=== PATIENT | male | born 1990 | race Caucasian/White ===

== ENCOUNTER 2017-02-23 23:26 | Emergency (ER) | payer MEDICARE, MEDICAID ==
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
== END 2017-02-24 11:40 | disposition home or self-care (01) ==
LOC: ER 23:26
PROC: 0PSPXZZ Reposition Right Metacarpal, External Approach (ICD-10-PCS; principal; 2017-02-23)
DX: S62.324A Displaced fracture of shaft of fourth metacarpal bone, right hand, initial encounter for closed fracture (principal); S62.316A Displaced fracture of base of fifth metacarpal bone, right hand, initial encounter for closed fracture; W22.8XXA Striking against or struck by other objects, initial encounter

== ENCOUNTER 2017-03-11 00:27 | Emergency (ER) | payer MEDICARE, MEDICAID ==
--- NOTE | 2017-03-11 19:16 | ER ---
ADMIT: 03/11/2017 RM/LOC: ER [facility] MR#: [id number] [address] [id number] CANDIS CONTRERAS [address] [place] [address] Emergency Room Report SEX: M AGE: 26 : 1990 DATE: 03/11/2017 The patient is a 26-year-old male, complaining of a loose ulnar gutter splint in right hand for the past 2 days. He has not been elevating, icing it, or resting it. Certainly has not been rewrapping his splint. Exam remarkable for loose Mandeep wrap. Rewrapped and instructed patient to do the same daily if becomes loose. Ice, rest, and elevate. Follow up Dr. Salguero as scheduled. Barrie Francis MD/ mary jo JOB #: [id number] CC: Barrie Francis MD, Attending Physician Rodrick Salguero MD, Family Physician Rodrick Salguero MD
== END 2017-03-11 01:05 | disposition home or self-care (01) ==
LOC: ER 00:27
DX: Z46.89 Encounter for fitting and adjustment of other specified devices (principal); F41.9 Anxiety disorder, unspecified; F32.9 Major depressive disorder, single episode, unspecified; Z79.899 Other long term (current) drug therapy